=== PATIENT | male | born 1950 | race Caucasian/White ===

== ENCOUNTER 2016-10-22 23:17 | Observation (INO) | payer BC ==
--- NOTE | ~2016-10-22 | HP ---
History And Physical [address] [id number] [facility] [place]. [address] NAME: JACKSON GONZALEZ : 48 STATUS : ADM Reshma PAT#: [id number] AGE: 66 ADM/REG DATE : 10/22/16 MR#: [id number] REPORT SERV DATE: 10/23/16 DICTATED BY: CAMILLE LOPEZ DATE: 10/23/16 REPORT STATUS : Draft TRANSCRIBED BY: AHMET DATE: 10/23/16 DATE OF ADMISSION: 10/22/2016 ACADEMIC DEAN: Babatunde Quijano M.D. CHIEF COMPLAINT: Chest pain. HISTORY OF PRESENT ILLNESS: A very pleasant 66-year-old white gentleman with known history of CAD, status post NOE to mid RCA in 09/2004 with identified 50% first diagonal lesion at that time. The patient states that on 10/23 around 1800 hours after hitting 2 buckets of golf balls, he experienced chest pain when walking to his car that did not radiate elsewhere. The chest discomfort persisted while he was at home, and he felt it prudent to come to the emergency room. He denies any associated shortness of breath, nausea, diaphoresis, dizziness, or belching. He describes the chest pain as an "ache." The chest pain was rated at 3/10 at its most intense. At time of interview in the [facility], he is pain free. The episode lasted approximately 90 minutes in duration. He did take two full dose aspirin prior to arrival. He describes this as a single event. The patient denies any personal history of myocardial infarction, stroke, DVT, or pulmonary embolus. The patient denies any recent fever, chills, no palpitations, no syncopal episodes. Denies PND or orthopnea. Of note, the patient recently had esophageal dilatation performed in 09/2016, currently on Protonix. PAST MEDICAL HISTORY: 1. CAD. a. 09/2004, NOE to mid RCA with 50% first diagonal lesion, EF 60%. 2. AODM. 3. Dyslipidemia. 4. Hypertension. 5. Gout. 6. GERD. 7. Positive family history for early CAD. PAST SURGICAL HISTORY: None. SOCIAL HISTORY: He is . He does not have any children. He is a retired banker. He has an inconsistent exercise routine but does golf routinely but rides a cart. Denies tobacco or illicits. Occasionally drinks beer. SOCIAL HISTORY: Mother at 43 of a cerebral aneurysm. Father at 47 of a heart attack. Twin brother at 46 of a heart attack. REVIEW OF SYSTEMS: A 14-point review of systems performed, significant for HPI including snores per report and History And Physical [place] [address] [place]. [address] NAME: JACKSON GONZALEZ : [birth year] STATUS : ADM Reshma PAT#: [id number] AGE: 66 ADM/REG DATE : 10/22/16 MR#: [id number] REPORT SERV DATE: 10/23/16 DICTATED BY: CAMILLE LOPEZ DATE: 10/23/16 REPORT STATUS : Draft TRANSCRIBED BY: AHMET DATE: 10/23/16 documented apneic periods during his most recent esophageal dilatation with recommendation for sleep study. Otherwise, home blood pressures of 130/85, home blood sugars of 120 to 130. Otherwise, complete review of systems obtained and negative. ALLERGIES: NO KNOWN DRUG ALLERGIES. HOME MEDICATIONS: Allopurinol 300 mg daily, amlodipine 10 mg daily, aspirin 81 mg daily, atorvastatin 40 mg daily, carvedilol 6.25 twice daily, doxazosin 4 mg daily, losartan/HCTZ 100/25 daily, Glucophage a 1000 mg twice daily, Protonix 40 mg daily, and potassium 10 mEq daily. PHYSICAL EXAMINATION: VITAL SIGNS: Bilateral blood pressures on arrival, right 146/79, left 146/82, this morning 167/87, pulse 75, respirations 16, temperature 97.8, O2 saturation 95% on room air. Height 5 feet 11 inches, weight 181 pounds, BMI 25. GENERAL: Cooperative, in no apparent distress. HEENT: Pupils 2 mm, sclera nonicteric. Nares patent. Moist mucous membranes. No xanthelasma. NECK: Trachea midline, no thyromegaly. No JVD. No bruits. LYMPH: No cervical lymphadenopathy. No supraclavicular lymphadenopathy. RESPIRATORY: Unlabored respirations. Breath sounds clear bilaterally to posterior auscultation. No wheezes or rhonchi. CARDIOVASCULAR: Regular rate. No murmur, rub or gallop appreciated. Extremities without edema. Pulses 2+ bilaterally. ABDOMEN: Soft, nontender, nondistended, normal bowel sounds auscultated throughout. No organomegaly. SKIN: Warm, dry extremities. No pallor or cyanosis. PSYCHIATRIC: Appropriate affect. Alert, oriented x3. LABORATORY DATA: Troponin less than 0.02 x3. Potassium 4.1, BUN 22, creatinine 1.31, glucose 103, magnesium 1.4. WBC 7.4, hemoglobin 14.0, hematocrit 38.8, and platelet count 209,000. EKG, sinus rhythm. Echo, 10/2014: EF 55%. Mild LAE (4.1 cm). Mild tricuspid regurgitation. Diastolic dysfunction. PCI 09/2004 ([facility]): NOE to mid RCA with a 50% first diagonal lesion, EF 60%. ASSESSMENT AND PLAN: 1. Chest pain in a patient with multiple risk factors. The patient has been observed in the CPOU overnight to rule out myocardial infarction with serial enzymes and stable EKG. The patient has been held n.p.o. We will proceed with MPI today and discharged home if negative study to follow up with PCP and Dr. Quijano as appropriate. If anything suggestive of ischemia, Cardiology referral will be initiated. 2. Coronary artery disease. Continue home medications. 3. Hypertension. Monitor blood pressure and continue home medications. 4. Dyslipidemia. Continue statin. 5. Adult-onset diabetes mellitus. Hold metformin level 1 sliding scale correction. 6. No nitroglycerin available. Have provided script at discharge and education provided History And Physical [address] [address] NAME: JACKSON GONZALEZ : [birth year] STATUS : ADM Reshma PAT#: [id number] AGE: 66 ADM/REG DATE : 10/22/16 MR#: [id number] REPORT SERV DATE: 10/23/16 DICTATED BY: CAMILLE LOPEZ DATE: 10/23/16 REPORT STATUS : Draft TRANSCRIBED BY: AHMET DATE: 10/23/16 to the patient and at bedside. 7. Snores per report with recent documented apneic spells during esophageal dilatation with recommendation for outpatient sleep study. 8. Hypomagnesium. Repleted per protocol. SY/AHMET Camille Lopez, REYNA, CYBER OPERATOR-BC / [id number] CC: REYNA Bartlett, CYBER OPERATOR-BC Dr. Jose Quijano M.D.
[2016-10-22 21:29] LABS: BASOPHILS 1.1 %; BASOPHILS ABSOLUTE 0.08 10/3/uL (0.0-0.16); EOSINOPHILS 4.5 %; EOSINOPHILS ABSOLUTE 0.33 10/3/uL (0.0-0.53); ER CBC TAT 0 Hrs 03 Mins; HEMATOCRIT 38.8 % (40.0-51.0); IMMATURE GRANULOCYTES 0.4 %; IMMATURE GRANULOCYTES ABSOLUTE 0.03 10/3/uL (0.0-0.11); LYMPHOCYTES 27.8 %; LYMPHOCYTES ABSOLUTE 2.06 10/3/uL (0.67-4.30); MEAN CORPUS HGB CONC 36.1 g/dL (32.0-36.0); MEAN CORPUSCULAR HEMOGLOB 32.8 pg (26.0-34.0); MEAN PLATELET VOLUME 10.2 fL (9.2-13.0); MONOCYTES 8.6 %; MONOCYTES ABSOLUTE 0.64 10/3/uL (0.21-1.20); NEUTROPHILS 57.6 %; NEUTROPHILS ABSOLUTE 4.26 10/3/uL (2.02-8.40); PLATELET COUNT 209 10/3/uL (150-400); RBC DISTRIBUTION WIDTH 12.9 % (12.0-16.0); RED CELL COUNT 4.27 10/6/uL (4.7-6.1); WHITE BLOOD CELLS 7.4 10/3/uL (4.5-10.5)
[2016-10-22 21:30] LABS: MANUAL DIFF NO %; MEAN CORPUSCULAR VOLUME 90.9 fL (80-100)
[2016-10-22 21:46] LABS: BUN (BLOOD UREA NITROGEN) 22 MG/DL (6-23); CALCIUM, SERUM 9.5 MG/DL (8.5-10.4); CHEST PAIN PROFILE TAT 0 Hrs 20 Mins; CHLORIDE, SERUM 101 MMOL/L (96-112); CO2 (CARBON DIOXIDE) 27 MMOL/L (24-34); CREATININE 1.31 MG/DL (0.70-1.30); GFR AFRICAN AMERICAN 65 ML/MIN (>=60); GFR NON AFRICAN AMERICAN 56 ML/MIN (>=60); GLUCOSE, SERUM 103 MG/DL (60-99); POTASSIUM, SERUM 4.1 MMOL/L (3.5-5.3); SODIUM, SERUM 138 MMOL/L (135-148); TROPONIN I <0.02 NG/ML (<0.05)
[2016-10-22] MEDS ORDERED: COREG6 PO (23:37)
[2016-10-22] MEDS ORDERED: KDUR10 PO (23:37)
[2016-10-22] MEDS ORDERED: PROTONIX PO (23:37)
[2016-10-22] MEDS ORDERED: NORV10 PO (23:38)
[2016-10-22] MEDS ORDERED: CARDU4 PO (23:38)
[2016-10-22] MEDS ORDERED: GLUCOPHAGE1000 MG PO (23:38)
[2016-10-22] MEDS ORDERED: Z300 PO (23:39)
[2016-10-22] MEDS ORDERED: HYZAAR 100/25 T1 TAB PO (23:39)
[2016-10-22] MEDS ORDERED: LIPITOR40 PO (23:39)
[2016-10-22] MEDS ORDERED: ASAB PO (23:40)
[2016-10-22] MEDS ORDERED: ASABAYER PO (23:41)
[2016-10-23 01:34] LABS: PARTIAL THROMBO TIME 21.6 SEC (22.5-37.2); PROTIME (NOT ORD) 12.7 SEC (12.0-14.5)
[2016-10-23] MEDS ORDERED: NITROQUICK0.4 MG SL (14:21)
== END 2016-10-23 14:58 | disposition home or self-care (01) ==
LOC: ER 23:17 → CDU1 23:42
PROVIDERS: Emergency Medicine
DX: R07.9 Chest pain, unspecified (principal); I25.10 Atherosclerotic heart disease of native coronary artery without angina pectoris; E78.5 Hyperlipidemia, unspecified; E11.8 Type 2 diabetes mellitus with unspecified complications; E83.42 Hypomagnesemia; M10.9 Gout, unspecified; K21.9 Gastro-esophageal reflux disease without esophagitis; E78.00 Pure hypercholesterolemia, unspecified; R06.83 Snoring; I10 Essential (primary) hypertension; Z82.49 Family history of ischemic heart disease and other diseases of the circulatory system; Z79.82 Long term (current) use of aspirin; Z79.899 Other long term (current) drug therapy
CPT/HCPCS: 71020; 78452; 80048; 82962; 83735; 84484; 85025; 85610; 85730; 93005; 93017; 96365; 96366; 99285; A9270-GY; A9502; G0378